=== PATIENT | female | born 1975 | race Caucasian/White ===

== ENCOUNTER → 2016-06-29 | Outpatient (REF) | payer BC, OTHER ==
[~2016-06-29] MED LIST: ACET65TA; ASPI325T; BCP; JOLIVETTE; PAIN325T
== END ==
LOC: M LABDRAW1 15:32
PROVIDERS: ATTEND Family Medicine
DX: E55.9 Vitamin D deficiency, unspecified (principal)

== ENCOUNTER → 2016-07-20 | Outpatient (REF) | payer BC, OTHER | LOC: M LAB REF 09:02 | PROVIDERS: ATTEND Physician Assistant | DX: J02.9 Acute pharyngitis, unspecified (principal) ==

== ENCOUNTER → 2016-11-07 | Outpatient (REF) | payer BC, OTHER | LOC: M LAB REF 09:50 | PROVIDERS: ATTEND Physician Assistant | DX: J02.9 Acute pharyngitis, unspecified (principal) ==

== ENCOUNTER → 2016-11-09 | Outpatient (REF) | payer BC, OTHER | LOC: M LABDRAW1 15:59 | PROVIDERS: ATTEND Family Medicine | DX: E55.9 Vitamin D deficiency, unspecified (principal) ==

== ENCOUNTER → 2016-11-29 | Outpatient (REF) | payer BC, OTHER | LOC: M LABDRAW1 09:13 | PROVIDERS: ATTEND Internal Medicine Endocrinology, Diabetes & Metabolism | DX: E06.3 Autoimmune thyroiditis (principal) ==